=== PATIENT | male | born 1995 | race Caucasian/White ===

== ENCOUNTER → 2019-08-23 | Day surgery (SDC) | payer MEDICAID ==
[2019-08-20 14:52] LABS: Basophils # (auto) 0.1 uL; Basophils % (auto) 0.7 % (0.0-2.0); Eosinophils # (auto) 0 uL; Eosinophils % (auto) 0.2 % (0.0-7.0); Hematocrit 45.6 % (41.0-53.0); Hemoglobin 16.1 g/dL (13.5-17.5); Lymphocytes # (auto) 2.6 uL; Lymphocytes % (auto) 33.8 % (10.0-50.0); Mean Corpuscular Hgb Conc. 35.2 g/dL (32.0-36.0); Mean Corpuscular Volume 93.7 fL (80.0-100.0); Monocytes # (auto) 0.7 uL; Monocytes % (auto) 9.7 % (0.0-12.0); Neutrophils # (auto) 4.2 uL; Neutrophils % (auto) 55.6 % (37.0-80.0); Platelet Count (auto) 251 10^3/uL (140-450); Red Blood Cells 4.86 10^6/uL (4.5-5.90); White Blood Cell 7.6 10^3/uL (4.4-10.8)
[2019-08-20 15:06] LABS: Urine Bacteria FEW /hpf (None Seen); Urine Blood Negative /uL (Negative); Urine Mucus FEW (None Seen); Urine Specific Gravity 1.031 (1.001-1.035); Urine WBC 2 /hpf (0 - 3)
[2019-08-20 15:09] LABS: INR 1.04 (0.9-1.15); Partial Thromboplastin Time 27.2 sec (23.64-32.05)
[2019-08-20 15:10] LABS: Albumin 4.5 g/dL (3.4-5.0); Calcium 9.3 mg/dL (8.5-10.1); Potassium 3.6 mmol/L (3.5-5.1)
[2019-08-20 15:14] LABS: BUN/Creatinine Ratio 12.9; Bilirubin, Total 0.4 mg/dL (0.2-1.0); Total Protein 8.3 g/dL (6.4-8.2)
[~2019-08-23] VITALS: Ht 177.8 cm; Wt 68.0 kg
[~2019-08-23] MED LIST: HYDROmorphone HCL 2 MG/ML VL IV PRN; KETOROLAC TROMETH 30 MG/ML 1ML VIAL IV ONE; LIDOCAINE W/ EPINEPHRINE 1% 20ML VIAL ONE; METOCLOPRAMIDE HCL 5MG/ml INJ 2ml VIAL IV PRN; MIDAZOLAM HCL 1MG/1ML-2 ML VIAL ONE; MORPHINE SULFATE 4 MG/ML SYR/VIAL IV PRN; NEOMYCIN-BACITRACIN-POLYM 15GM TOP OINT TOP ONE; ONDANSETRON HCL 4 MG/2 ML VIAL ONE; PROPOFOL 10 MG/ML 20 ML IV ONE; SODIUM CHLORIDE LOCK 10 ML ONE; ceFAZolin 1GM/50ML 50 ML IV ONE; fentaNYL CITRATE 100 MCG/2 ML VL IV PRN; fentaNYL CITRATE 100 MCG/2 ML VL ONE
[2019-08-23 15:10] VITALS: BP 129/85
== END | disposition home or self-care (01) ==
LOC: SUR 09:24
PROVIDERS: ATTEND Urology
DX: I86.1 Scrotal varices (principal); F17.210 Nicotine dependence, cigarettes, uncomplicated; Z79.01 Long term (current) use of anticoagulants
CPT/HCPCS: 36415; 55530; 80053; 81001; 85025; 85610; 85730; 88304; J0690; J2250; J2405; J2704; J3010; J7030